=== PATIENT | male | born 1960 | race Caucasian/White ===

== ENCOUNTER 2024-12-27 06:48 | Outpatient (CLI) | payer MEDICARE, SELFPAY ==
--- NOTE | 2024-12-27 06:56 | CT_ITS ---
FINAL REPORT TECHNIQUE: Thin section axial images were obtained from the lung bases to the pubic symphysis without IV contrast. Coronal reconstruction images were obtained from the axial data. This study was performed with techniques to keep radiation doses as low as reasonably achievable, (ALARA). Individualized dose reduction techniques using automated exposure control or adjustment of mA and/or kV according to the patient's size were employed. CLINICAL HISTORY: KIDNEY STONE PROTOCOL Left flank pain FINDINGS: There is a large 19 mm stone in the left renal pelvis. There is mild hydronephrosis of the left kidney. This stone is likely intermittently obstructing at the UPJ. There is a right renal cyst. No other renal or ureteral stones are identified. The gallbladder is present. The remaining unenhanced solid abdominal organs are unremarkable. There is no evidence of small bowel obstruction. The appendix is normal. There is sigmoid diverticulosis without diverticulitis. There is no abdominal or pelvic lymphadenopathy. There is no ascites. No acute osseous abnormality is identified. IMPRESSION: Large left renal stone in the renal pelvis with hydronephrosis. The stone is likely intermittently obstructing at the UPJ. Reviewed, Interpreted and Dictated by Radha Jarrett MD Transcribed by Adina Garcia Authenticated and [facility]
== END 2024-12-27 23:59 | disposition home or self-care (01) ==
LOC: RAD 06:53
PROVIDERS: PCP Nurse Practitioner; Visit Provider Nurse Practitioner
DX: N13.2 Hydronephrosis with renal and ureteral calculous obstruction (principal)
CPT/HCPCS: 74176